=== PATIENT | female | born 1935 | race Caucasian/White ===

== ENCOUNTER → 2017-04-16 | Outpatient (CLI) | payer OTHER ==
[~2017-04-16] MED LIST: ADVAIR HFA115 MCG/21 INH; ASPIRIN325 PO; AVAPRO300 MG PO; COLACE100 MG PO; HYDROCHLOROTHIA25 M2 PO; HYDROCODONE-AP1 EAC6 PO; LEVOTHYROXIN0.088 MG PO; LOPRESSOR100 M1 PO; METOPROLOL SUC200 MG PO; PRAVACHOL40 MG PO; REQUIP0.5 MG PO; VITAMIN D31000 UNI2 PO; ZANTAC 150MG T150 MG PO; ZYRTEC10 MG PO
== END ==
LOC: LABMALL 10:59
DX: G31.9 Degenerative disease of nervous system, unspecified (principal); F48.2 Pseudobulbar affect; W19.XXXA Unspecified fall, initial encounter

== ENCOUNTER → 2019-03-07 | Outpatient (CLI) | payer OTHER | LOC: CAT 09:19 | DX: Z13.6 Encounter for screening for cardiovascular disorders (principal); E78.00 Pure hypercholesterolemia, unspecified; I25.10 Atherosclerotic heart disease of native coronary artery without angina pectoris ==